=== PATIENT | male | born 1985 | race Hispanic/Latino ===

== ENCOUNTER 2021-01-09 20:16 | Emergency (ER) | payer SELFPAY ==
[2021-01-09] MEDS ORDERED: HALOPERIDOL LACTATE 5 MG/1 ML INJ IM PRN (23:07)
[2021-01-09] MEDS ORDERED: LORazepam 2 MG/ML VIAL IM PRN (23:07)
--- NOTE | 2021-01-09 23:08 | Emergency Department Report ---
ED General Adult HPI - General Chief complaint: Medical Clearance Stated complaint: MH/WANTS A PLACE TO STAY PUI?: No Time Seen by Provider: 01/09/21 23:06 Source: patient, EMS (Verbal report received from emergency medical services. EMS documentation not available at time of chart dictation ), RN notes reviewed Mode of arrival: Stretcher Limitations: No Limitations - History of Present Illness Initial comments: The patient was evaluated in the emergency department for symptoms described in the history of present illness. He/she was evaluated in the context of the global COVID-19 pandemic, which necessitated consideration that the patient might be at risk for infection with the virus that causes COVID-19. Institutional protocols and algorithms that pertain to the evaluation of patients at risk for COVID-19 are in a state of rapid change based on information released by regulatory bodies including the CDC and federal and state organizations. These policies and algorithms were followed during the patient's care in the emergency department. Please note that these policies, procedures and recommendations changed on a rapid basis. The patient is a 35-year-old gentleman. The patient is not known to myself prev iously. He presents to the ER via EMS. As per EMS, the patient likely overdosed on recreational drugs. The patient told me that he is suicidal. The patient told the charge nurse that he overdosed on Wellbutrin. Patient denies physical pain. The patient denies homicidality. The patient denies hallucinations. The patient tells me that he is visiting from [facility]. The patient tells me that a friend drove him up here. The patient tells me that he has no place to stay locally. -: This evening Consistency: constant Improves with: none Worsens with: none Associated Symptoms: denies other symptoms - Related Data Home Medications Medication Instructions Recorded Confirmed Last Taken Gabapentin [Neurontin] 600 mg PO Q8H 01/10/21 01/10/21 Unknown OXcarbazepine [Trileptal] 300 mg PO BID 01/10/21 01/10/21 Unknown Phenytoin [Dilantin] 300 mg PO BID 01/10/21 01/10/21 Unknown Previous Rx's Medication Instructions Recorded Last Taken Type Bupropion HCl [Wellbutrin XL] 450 mg PO QAM #30 01/10/21 Unknown Rx Allergies Allergy/AdvReac Type Severity Reaction Status Date / Time latex Allergy Unknown Verified 10/12/21 23:59 Penicillins Allergy Unknown Verified 01/09/21 23:59 ED Review of Systems ROS: Stated complaint: MH/WANTS A PLACE TO STAY Other details as noted in HPI Comment: All other systems reviewed and negative Psychiatric: suicidal thoughts ED Past Medical Hx - Medications Home Medications: Home Medications Medication Instructions Recorded Confirmed Last Taken Type Bupropion HCl [Wellbutrin XL] 450 mg PO QAM #30 01/10/21 Unknown Rx Gabapentin [Neurontin] 600 mg PO Q8H 01/10/21 01/10/21 Unknown History OXcarbazepine [Trileptal] 300 mg PO BID 01/10/21 01/10/21 Unknown History Phenytoin [Dilantin] 300 mg PO BID 01/10/21 01/10/21 Unknown History ED Physical Exam - General Limitations: No Limitations General appearance: alert, in no apparent distress - Head Head exam: Present: atraumatic, normocephalic - Eye Eye exam: Present: normal appearance, EOMI. Absent: nystagmus - ENT ENT exam: Present: normal exam, normal orophraynx, mucous membranes moist, normal external ear exam - Neck Neck exam: Present: normal inspection, full ROM. Absent: tenderness, meningismus - Respiratory Respiratory exam: Present: normal lung sounds bilaterally. Absent: respiratory distress, wheezes, rales, rhonchi, stridor, decreased breath sounds - Cardiovascular Cardiovascular Exam: Present: regular rate, normal rhythm, normal heart sounds. Absent: bradycardia, tachycardia, irregular rhythm, systolic murmur, diastolic murmur, rubs, gallop - GI/Abdominal GI/Abdominal exam: Present: soft. Absent: distended, tenderness, guarding, rebound, rigid, pulsatile mass - Rectal Rectal exam: Present: deferred - Extremities Exam Extremities exam: Present: normal inspection, full ROM, other (2+ pulses noted in the bilateral upper and lower extremities. There is no palpable cord. negative Homans sign. Muscular compartments are soft. The pelvis is stable.). Absent: pedal edema, calf tenderness - Back Exam Back exam: Present: normal inspection. Absent: tenderness, CVA tenderness (R), CVA tenderness (L), paraspinal tenderness, vertebral tenderness - Neurological Exam Neurological exam: Present: alert, oriented X3, normal gait, other (No facial droop. Tongue midline. Extraocular movements intact bilaterally. Facial sensation intact to light touch in V1, V2, V3 distribution bilaterally. 5 and a 5 strength in 4 extremities. Sensation intact to light touch in 4 extremities.). Absent: motor sensory deficit - Psychiatric Psychiatric exam: Present: flat affect, suicidal ideation - Skin Skin exam: Present: warm, dry, intact, normal color. Absent: rash ED Course Vital Signs 01/09/21 01/10/21 01/10/21 23:09 00:23 02:21 Temperature 97.8 F Pulse Rate 94 H 86 Respiratory 16 20 25 H Rate Blood Pressure 114/67 Blood Pressure 112/70 [Right] O2 Sat by Pulse 99 97 97 Oximetry 01/10/21 01/10/21 01/10/21 03:01 04:01 04:48 Temperature Pulse Rate 78 76 77 Respiratory 18 18 16 Rate Blood Pressure 107/49 103/54 Blood Pressure 107/63 [Right] O2 Sat by Pulse 96 96 98 Oximetry 01/10/21 01/10/21 01/10/21 05:01 06:01 06:25 Temperature Pulse Rate 74 72 74 Respiratory 14 16 17 Rate Blood Pressure 107/63 88/40 Blood Pressure 104/54 [Right] O2 Sat by Pulse 96 96 98 Oximetry 01/10/21 01/10/21 01/10/21 07:07 08:01 09:01 Temperature Pulse Rate 75 71 69 Respiratory 21 17 17 Rate Blood Pressure 108/61 101/53 Blood Pressure 97/57 [Right] O2 Sat by Pulse 97 98 Oximetry 01/10/21 01/10/21 01/10/21 11:01 12:01 14:01 Temperature Pulse Rate 70 74 76 Respiratory 14 17 24 Rate Blood Pressure 90/39 97/49 108/54 Blood Pressure [Right] O2 Sat by Pulse 98 100 99 Oximetry 01/10/21 01/10/21 01/10/21 16:01 18:01 20:01 Temperature Pulse Rate 67 79 68 Respiratory 16 21 18 Rate Blood Pressure 106/57 104/62 109/59 Blood Pressure [Right] O2 Sat by Pulse 98 98 99 Oximetry 01/10/21 01/10/21 01/10/21 22:01 22:27 23:56 Temperature 98.0 F 98.0 F Pulse Rate 70 71 72 Respiratory 10 L 16 16 Rate Blood Pressure 106/65 Blood Pressure 110/67 [Right] O2 Sat by Pulse 95 96 Oximetry 01/11/21 03:48 Temperature 97.9 F Pulse Rate 78 Respiratory 16 Rate Blood Pressure Blood Pressure 121/71 [Right] O2 Sat by Pulse 95 Oximetry - Reevaluation(s) Reevaluation #1: 01/10/21 00:40 Differential diagnosis, including but not limited to: Medical clearance for psychiatric placement, encounter for medical screening examination, encounter for behavioral health screening examination, overdose, malingering, secondary gain Assessment and plan: 35-year-old gentleman who states that he is suicidal. He offers inconsistent history. He told the charge nurse that he overdosed on Wellbutrin. He denies this to myself. Laboratory studies so far are unremarkable. I suspect this patient is presenting for the purposes of malingering and secondary gain. However, we will place him on 1013 hold. Laboratory studies unremarkable. EKG unremarkable. Urinalysis pending. Covid swab ordered. 01/10/21 00:45 Discussed with [facility]ra[facility] and the [place] [facility]. 24 hours of cardiac monitoring for the points of initial medical contact are recommended. I suspect this patient is not being truthful with me. I suspect this patient is presenting for the purposes of secondary gain. Therefore, I will place this patient on a secured entrance monitor in the emergency room, for 24 hours to satisfy the recommendations from the [place] [facility]. As needed medications ordered. Psychiatric consultation ordered. Covid swab ordered. 1013 ordered. At the moment, patient sleeping comfortably in no acute distress. 01/10/21 01:46 Care will be transferred to the oncoming overnight ER physician, Dr Nicole Schafer, to continue patient monitoring. In turn, this patient will need to be turned over to the morning physician, to follow-up on cardiac monitoring. Given current Covid considerations, lack of available beds in the inpatient nurses, and capability of the ER to monitor this patient on a secured entrance monitor, it is my opinion that it would be reasonable to observe this patient in a secured entrance monitor in the emergency room for the recommended timeframe of 24 hours. Should this patient not have any arrhythmias or adverse events at the 24 hours, I would consider this patient medically suitable for psychiatric placement. 01/15/21 16:15 ED Medical Decision Making - Lab Data Result diagrams: 01/09/21 23:19 01/09/21 23:19 Vital Signs 01/09/21 01/10/21 23:09 00:23 Temperature 97.8 F Pulse Rate 94 H Respiratory 16 20 Rate Blood Pressure 112/70 [Right] O2 Sat by Pulse 99 97 Oximetry Lab Results 01/09/21 01/09/21 01/09/21 Range/Units 23:19 23:19 23:19 WBC 7.3 (4.5-11.0) K/mm3 RBC 4.35 (3.65-5.03) M/mm3 Hgb 13.0 (11.8-15.2) gm/dl Hct 39.0 (35.5-45.6) % MCV 90 (84-94) fl MCH 30 (28-32) pg MCHC 33 (32-34) % RDW 16.3 H (13.2-15.2) % Plt Count 171 (140-440) K/mm3 Lymph % (Auto) 23.8 (13.4-35.0) % [place] % (Auto) 9.2 H (0.0-7.3) % Eos % (Auto) 4.4 H (0.0-4.3) % Baso % (Auto) 0.6 (0.0-1.8) % Lymph # (Auto) 1.7 (1.2-5.4) K/mm3 [place] # (Auto) 0.7 (0.0-0.8) K/mm3 Eos # (Auto) 0.3 (0.0-0.4) K/mm3 Baso # (Auto) 0.0 (0.0-0.1) K/mm3 Seg Neutrophils % 62.0 (40.0-70.0) % Seg Neutrophils # 4.5 (1.8-7.7) K/mm3 Sodium 142 (137-145) mmol/L Potassium 4.1 (3.6-5.0) mmol/L Chloride 103.9 (98-107) mmol/L Carbon Dioxide 26 (22-30) mmol/L Anion Gap 16 mmol/L BUN 17 (9-20) mg/dL Creatinine 0.8 (0.8-1.3) mg/dL Estimated GFR > 60 ml/min BUN/Creatinine Ratio 21 % Glucose 93 (75-100) mg/dL Calcium 9.5 (8.4-10.2) mg/dL Total Bilirubin 0.30 (0.1-1.2) mg/dL AST 17 (5-40) units/L ALT 21 (7-56) units/L Alkaline Phosphatase 80 (35-129) units/L Total Protein 7.6 (6.3-8.2) g/dL Albumin 4.6 (3.9-5) g/dL Albumin/Globulin Ratio 1.5 % TSH 1.390 (0.270-4.200) mlU/mL Salicylates (2.8-20.0) mg/dL Acetaminophen (10.0-30.0) ug/mL Plasma/Serum Alcohol (0-0.07) % 01/09/21 01/09/21 01/09/21 Range/Units 23:19 23:19 23:19 WBC (4.5-11.0) K/mm3 RBC (3.65-5.03) M/mm3 Hgb (11.8-15.2) gm/dl Hct (35.5-45.6) % MCV (84-94) fl MCH (28-32) pg MCHC (32-34) % RDW (13.2-15.2) % Plt Count (140-440) K/mm3 Lymph % (Auto) (13.4-35.0) % [place] % (Auto) (0.0-7.3) % Eos % (Auto) (0.0-4.3) % Baso % (Auto) (0.0-1.8) % Lymph # (Auto) (1.2-5.4) K/mm3 [place] # (Auto) (0.0-0.8) K/mm3 Eos # (Auto) (0.0-0.4) K/mm3 Baso # (Auto) (0.0-0.1) K/mm3 Seg Neutrophils % (40.0-70.0) % Seg Neutrophils # (1.8-7.7) K/mm3 Sodium (137-145) mmol/L Potassium (3.6-5.0) mmol/L Chloride (98-107) mmol/L Carbon Dioxide (22-30) mmol/L Anion Gap mmol/L BUN (9-20) mg/dL Creatinine (0.8-1.3) mg/dL Estimated GFR ml/min BUN/Creatinine Ratio % Glucose (75-100) mg/dL Calcium (8.4-10.2) mg/dL Total Bilirubin (0.1-1.2) mg/dL AST (5-40) units/L ALT (7-56) units/L Alkaline Phosphatase (35-129) units/L Total Protein (6.3-8.2) g/dL Albumin (3.9-5) g/dL Albumin/Globulin Ratio % TSH (0.270-4.200) mlU/mL Salicylates < 0.3 L (2.8-20.0) mg/dL Acetaminophen 5.0 L (10.0-30.0) ug/mL Plasma/Serum Alcohol < 0.01 (0-0.07) % - EKG Data -: EKG Interpreted by Me EKG shows normal: sinus rhythm Rate: normal - EKG Data When compared to previous EKG there are: previous EKG unavailable 01/10/21 00:39 EKG interpreted at 23: 12 Sinus rhythm, 91 bpm. Normal axis, normal intervals, high left ventricular voltage, and motion artifact. Abnormal EKG. Not a STEMI. Critical care attestation.: If time is entered above; I have spent that time in minutes in the direct care of this critically ill patient, excluding procedure time. ED Disposition Clinical Impression: Malingering, Medical clearance for psychiatric admission Disposition: 01 HOME / SELF CARE / HOMELESS Is pt being admited?: No Does the pt Need Aspirin: No Condition: Good Additional Instructions: Professional and Agency Contacts To help Resolve Crises(21/10) [place] Crisis Line: Suicide Prevention Line: Crisis Text Line: Text START to [phone] Emergency: 911 Outpatient COMMUNITY Behavioral Health Resources: [place]: [facility] [address] [place], [place] [address] [place]: [address] [address] [place]: [facility] - [address] [place] [address] Friday thru Friday - 8am - 5pm [place]: [facility] Address: [address], [place] [address] [place]: [facility] Address: [address] [facility], [place], [place] [address]Friday thru Friday- 7am-2pm In case of an emergency, please contact the following numbers: [place] Crisis and Access Line: Number: Crisis Text Line: (Text START) Number: 415557 Suicide Prevention Line: Number: Emergency Number: 911 SUBSTANCE ABUSE PROGRAMS So[facility] Living [place]: Location: [place], [place] [facility] Address: [address] [place] [address] [facility]: Address: [address] [facility] [address] [facility]: Address: [address] [place] [address] [facility] Community: Address: [address] [place] [address] [facility] Address: [address] [place] [address]. Please contact above numbers to attempt placement into free based program. Medicaid Programs: [facility]: Address: [address] [place] [address] [facility]: Address: [address] [place] [address] Prescriptions: Bupropion HCl [Wellbutrin XL] 450 mg PO QAM #30 Referrals: PRIMARY CARE, [Primary Care Provider] - 3-5 Days
[2021-01-09 23:41] LABS: Basophils % (Auto) 0.6 % (0.0-1.8); Eosinophils # (Auto) 0.3 K/mm3 (0.0-0.4); Eosinophils % (Auto) 4.4 % (0.0-4.3); Lymphocytes # (Auto) 1.7 K/mm3 (1.2-5.4); Lymphocytes % (Auto) 23.8 % (13.4-35.0); Mean Corpuscular HGB Conc 33 % (32-34); Mean Corpuscular Volume 90 fl (84-94); Monocytes # (Auto) 0.7 K/mm3 (0.0-0.8); Monocytes % (Auto) 9.2 % (0.0-7.3); Red Blood Count 4.35 M/mm3 (3.65-5.03); Red Cell Distribution Width 16.3 % (13.2-15.2)
[2021-01-09 23:46] LABS: Platelet Count 171 K/mm3 (140-440)
[2021-01-10] LABS: Alanine Aminotransferase 21 units/L (7-56); Albumin 4.6 g/dL (3.9-5); BUN/Creatinine Ratio 21; Blood Urea Nitrogen 17 mg/dL (9-20); Calcium 9.5 mg/dL (8.4-10.2); Hemolysis Index 2
[2021-01-10] MEDS ORDERED: NALOXONE 0.4 MG/1 ML INJ IV PRN (00:40)
--- NOTE | 2021-01-10 08:46 | Consultation ---
History of Present Illness - Reason for Consult Consult date: 01/10/21 Reason for consult: SI - History of Present Psychiatric Illness The patient was seen today. He is asleep but easily arouses. He says he has been off his meds for a couple of weeks. The patient says he takes seizure medication and wellbutrin for depression. He says he feels suicidal for that reason, and needs to get back on his wellbutrin. He says he has a history of Bipolar, PTSD, and opioid dependence. He says the last time he did heroine was 2 days ago. I informed the patient that I could give him his wellbutrin so he could get back on it. The patient then says he has a plan to overdose on heroine. The patient denies hallucinations of any kind. PAST PSYCHIATRIC HISTORY Diagnoses: PTSD, Bipolar, opioid dependence Suicide attempts or Self-harm behavior: Denies Prior psychiatric hospitalizations: Yes Substance Abuse history: Heroine Previous psychiatric wellbutrin Outpatient treatment: Yes PAST MEDICAL HISTORY: Seizure Family Psychiatric History: None reported or documented SOCIAL HISTORY Marital Status: Living Arrangements: with a friend Employment Status: Unemployed Access to guns/weapons: Denies Education: History of Abuse: Denies Legal History: Denies REVIEW OF SYSTEMS Constitutional: Negative for weight loss ENT: Negative for stridor Respiratory: Negative for cough or hemoptysis All other systems reviewed and are negative MENTAL STATUS EXAMINATION General Appearance and Behavior: Age appropriate, good hygiene, wearing appropriate clothes, good eye contact, drowsy Cooperation: Participating/engaged Psychomotor Behavior: Psychomotor normal Mood: okay Affect and affective range: Congruent to stated mood Thought Process: goal Directed Thought Content: None Speech: normal tone and pace Suicidal Ideation: Denies Homicidal Ideation: Denies Hallucinations: Denies Impulse Control: Limited Insight and Judgment: Limited Memory: Normal Attention: drowsy Orientation: Alert and oriented Assessment and Plan (1) Opioid Dependence (2) Bipolar Disorder Treatment Plan d/c 1013 Wellbutrin 450mg po daily Sitter: per primary Medical: per primary Disposition: The patient to abstain from all illicit drug use The sitter to give the patient all necessary resources for outpatient treatment Will sign off. Thanks. Case staffed with Dr. Jackson Medications and Allergies Allergies Allergy/AdvReac Type Severity Reaction Status Date / Time latex Allergy Unknown Verified 01/09/21 23:59 Penicillins Allergy Unknown Verified 01/09/21 23:59 Home Medications Medication Instructions Recorded Confirmed Last Taken Type Bupropion HCl [Wellbutrin XL] 450 mg PO QAM #30 01/10/21 Unknown Rx Gabapentin [Neurontin] 600 mg PO Q8H 01/10/21 01/10/21 Unknown History OXcarbazepine [Trileptal] 300 mg PO BID 01/10/21 01/10/21 Unknown History Phenytoin [Dilantin] 300 mg PO BID 01/10/21 01/10/21 Unknown History Active Meds: Active Medications Haloperidol Lactate (Haloperidol Lactate 5 Mg/1 Ml Inj) 5 mg IM Q6HR PRN PRN Reason: Agitation Lorazepam (Lorazepam 2 Mg/Ml Vial) 2 mg IM Q4HR PRN PRN Reason: Agitation Naloxone HCl (Naloxone 0.4 Mg/1 Ml Inj) 0.1 mg IV Q2MIN PRN PRN Reason: Res Rate </= 8 or 02 SAT < 92% Mental Status Exam - Vital signs Last Vital Signs Temp 97.8 F 01/09/21 23:09 Pulse 75 01/10/21 07:07 Resp 21 01/10/21 07:07 BP 97/57 01/10/21 07:07 Pulse Ox 98 01/10/21 06:25 Results Result Diagrams: 01/09/21 23:19 01/09/21 23:19 Abnormal lab results 01/09/21 01/09/21 01/09/21 Range/Units 23:19 23:19 23:19 RDW 16.3 H (13.2-15.2) % Long % (Auto) 9.2 H (0.0-7.3) % Eos % (Auto) 4.4 H (0.0-4.3) % Salicylates < 0.3 L (2.8-20.0) mg/dL Acetaminophen 5.0 L (10.0-30.0) ug/mL Phenytoin (10.0-20.0) ug/mL 01/09/21 Range/Units 23:19 RDW (13.2-15.2) % Long % (Auto) (0.0-7.3) % Eos % (Auto) (0.0-4.3) % Salicylates (2.8-20.0) mg/dL Acetaminophen (10.0-30.0) ug/mL Phenytoin 1.0 L (10.0-20.0) ug/mL All other labs normal.
[2021-01-10] MEDS ORDERED: buPROPion XL 150 MG TAB PO SCH (10:00)
[2021-01-10] MEDS ORDERED: NON-FORMULARY EACH (Bupropion Hcl [Wellbutrin Xl] 300 MG Tab.Er.24h) PO SCH (10:00)
[2021-01-11 00:08] LABS: Bilirubin,Urine NEG (Negative); Blood,Urine NEG (Negative); Color,Urine Yellow (Yellow); Protein,Urine <15 mg/dL mg/dL (Negative); Urobilinogen,Urine < 2.0 mg/dL (<2.0)
[2021-01-11 00:18] LABS: Amphetamine Screen,Urine PRESUMPTIVE NEGATIVE; Benzodiazepines Screen,Urine PRESUMPTIVE NEGATIVE; Cannabinoid Screen,Urine PRESUMPTIVE NEGATIVE; Cocaine Screen,Urine PRESUMPTIVE NEGATIVE; Methadone Screen,Urine PRESUMPTIVE NEGATIVE; Opiate Screen,Urine PRESUMPTIVE NEGATIVE
[2021-01-11 03:49] VITALS: BP 121/71
--- NOTE | 2021-01-17 14:17 | Electrocardiograph Report ---
[facility] Test Date: 2021-01-09 Test Time: 23:12:17 Pat Name: SUJATA BUTTS Department: Room: Gender: M Cant Gang Sawyer: PASTORA SHETHB: 1985 Requested By: TIO CHACON Order Number: [id number] Reading MD: Cristian Lantigua Measurements Intervals [place] Rate: 91 P: 73 MD: 135 QRS: 55 QRSD: 83 T: 35 QT: 346 QTc: 426 Interpretive Statements Sinus rhythm No previous ECG available for comparison Electronically Signed On 01-17-2021 14:17:33 EDT by Cristian Lantigua
== END 2021-01-11 03:48 | disposition home or self-care (01) ==
LOC: ED 20:16
DX: Z76.5 Malingerer [conscious simulation] (principal); Z13.30 Encounter for screening examination for mental health and behavioral disorders, unspecified; Z20.822 Contact with and (suspected) exposure to COVID-19; R94.6 Abnormal results of thyroid function studies; Z79.899 Other long term (current) drug therapy
CPT/HCPCS: 36415; 80048; 80053; 80185; 80307; 81001; 84443; 85025; 93005; 99284; U0003; 80320; G0480